=== PATIENT | female | born 1980 | race Caucasian/White ===

== ENCOUNTER 2018-11-18 14:32 | Emergency (ER) | payer SELFPAY ==
[2018-11-18] MEDS ORDERED: Ondansetron PF 4 MG/2 ML Vial ONE (15:28)
[2018-11-18] MEDS ORDERED: Morphine 4 MG/ML VIAL ONE (15:28)
[2018-11-18 15:34] LABS: #Basophils 0.1 thou/uL (0.0-0.2); #Eosinphils 0.2 thou/uL (0.0-0.7); #Lymphocytes 2.8 thou/uL (1.20-3.40); #Neutrophils 8.7 thou/uL (1.40-6.50); %Basophils 0.7 % (0.0-1.0); %Eosinophils 1.3 % (0.0-10.0); %Lymphocytes 21.8 % (21.0-51.0); %Monocytes 8.2 % (0.0-10.0); Hemoglobin 14.5 g/dL (12.0-16.0); Mean Corpuscular HGB CONC 34.7 g/dL (32.0-36.0); Mean Corpuscular Hemoglobin 31.6 pg (27.0-31.0); Mean Platelet Volume 10.1 fL (7.4-10.4); Platelet Count 204 thou/uL (130-400); RBC Distribution Width 10.4 % (11.5-14.5); White Blood Cell (WBC) Count 12.7 thou/uL (4.8-10.8)
[2018-11-18 15:39] LABS: BHCG - Serum Negative (NEGATIVE); Pregs Control Background? CLEAR/WHITE (CLR/WHITE); Pregs Control Bar Appear? YES (CONTROL BAR)
[2018-11-18 15:44] LABS: Bilirubin Negative (Negative); Blood, Urine Moderate (Negative); Glucose, Urine (Dipstick) Negative (Negative); Leukocyte Negative (Negative); Nitrite Negative (Negative); Protein, Urine (Dipstick) Negative (Neg-Trace); Urobilinogen 0.2 mg/dL (Less than 2)
[2018-11-18 15:44] LABS: ALT (SGPT) 20 U/L (8-55); AST (SGOT) 15 U/L (5-34); Albumin 4.2 g/dL (3.5-5.0); Alkaline Phosphatase 79 U/L (40-150); Anion Gap 14 mmol/L (10-20); BUN (Urea Nitrogen) 13 mg/dL (7.0-18.7); Bilirubin, Total 0.2 mg/dL (0.2-1.2); Calc. Creatinine Clearance 0 mL/min (70-130); Calcium 9.4 mg/dL (7.8-10.44); Carbon Dioxide 21 mmol/L (22-29); Chloride 106 mmol/L (98-107); Estimated GFR-MDRD 85; Globulin 3.2 g/dL (2.4-3.5); Glucose 103 mg/dL (70-105); Potassium 3.6 mmol/L (3.5-5.1); Protein, Total 7.4 g/dL (6.0-8.3); Sodium 137 mmol/L (136-145)
[2018-11-18 15:45] LABS: Clarity Hazy (Clear)
[2018-11-18 15:49] LABS: WBC/HPF None Seen HPF (0-3)
[2018-11-18 15:50] LABS: Bacteria/HPF Rare-Few HPF (None Seen)
--- NOTE | 2018-11-18 17:02 | CT ---
CT STONE PROTOCOL: HISTORY:Right CVA pain COMPARISON: 07/17/2015 DISCLAIMER: Absence of oral and IV contrast reduces the sensitivity of the exam particularly for the evaluation of solid organs and bowel. FINDINGS: The lung bases are clear. No free air or free fluid is seen in the abdomen or pelvis. No calcified ga llstones are noted. There is a punctate calculus in the right kidney. There are couple of calculi in the left kidney the larger measuring 3 mm. No calculi are seen in the ureters or the urinary bladder. No hydroureteronephrosis is noted on either side. Uterus and ovaries are present. There is a 2.9 cm left adnexal cystic mass likely ovarian. There is f ecal material in the colon. IMPRESSION: Nonobstructing renal calculi.
== END 2018-11-18 17:52 | disposition home or self-care (01) ==
LOC: SCSER 14:32
DX: M54.9 Dorsalgia, unspecified (principal); D72.829 Elevated white blood cell count, unspecified; K59.00 Constipation, unspecified; R19.7 Diarrhea, unspecified; R11.0 Nausea
CPT/HCPCS: 74176; 80053; 81003; 81015; 84703; 85025; 96361; 96374; 96375; J2270; J2405

== ENCOUNTER 2019-04-21 08:51 | Outpatient (CLI) | payer OTHER ==
--- NOTE | 2019-04-21 09:12 | RAD ---
KUB: 04/21/2019 COMPARISON: None available HISTORY: Renal stone disease FINDINGS: A faint calcification in the left upper quadrant is noted overlying the left 12th rib measu ring approximately 4 mm, suggesting a small left intrarenal calculus. No calcification noted in the right upper quadrant. The bowel gas pattern appears nonobstructed IMPRESSION:4 mm calcification in left upper quadrant suggesting an intrarenal calculus.
== END 2019-04-21 08:52 | disposition home or self-care (01) ==
LOC: BICRAD 08:51
PROVIDERS: ATTEND Urology
DX: N20.0 Calculus of kidney (principal); R93.3 Abnormal findings on diagnostic imaging of other parts of digestive tract
CPT/HCPCS: 74018